=== PATIENT | male | born 1975 | race Caucasian/White ===

== ENCOUNTER → 2020-12-25 | Outpatient (CLI) | payer OTHER ==
[~2020-12-25] MED LIST: DEPAKOTE; DILANTIN100 MG PO; FLEXERIL PO; LOXAPINE10 MG PO; MEDROL DOSPAK21 TAB PO; NORCO 5-325 TA1 EACH PO; PROTONIX40 MG PO
[2020-12-25 09:10] LABS: ABSOLUTE NEUTROPHILS 4.1 thou/uL (1.4-8.2); BASOPHILS 0.4 % (0.0-2.0); EOSINOPHILS 1.4 % (0.0-3.0); HEMATOCRIT 45.1 % (42.0-52.0); HEMOGLOBIN 15.5 gm/dL (14.0-18.0); LYMPHOCYTES 33.2 % (24.0-44.0); MCHC 34.4 g/dL (28.0-37.0); MCV 98.7 fL (80.0-100.0); MONOCYTES 8.5 % (1.0-8.0); PLATELET COUNT 240 thou/uL (150-400); POLYS 56.5 % (36.0-66.0); RBC 4.57 mil/uL (4.50-6.00); RDW 13.6 % (10.5-14.5); WBC 7.2 thou/uL (4.0-11.0)
[2020-12-25 09:21] LABS: ALBUMIN 3.8 g/dL (3.4-5.0); ANION GAP 12 mmol/L (7-16); BUN 21 mg/dL (7-18); CALCIUM 8.5 mg/dL (8.5-10.1); CHLORIDE 106 mmol/L (98-107); CO2 24 mmol/L (21-32); DIRECT BILIRUBIN < 0.1 mg/dL (<0.1-0.2); GLUCOSE 122 mg/dL (74-106); POTASSIUM 4.1 mmol/L (3.5-5.1); SGOT 24 U/L (15-37); SGPT 47 U/L (30-65); SODIUM 142 mmol/L (136-145); TOTAL BILIRUBIN 0.2 mg/dL (0.2-1.0); TOTAL PROTEIN 6.9 g/dL (6.4-8.2)
== END ==
LOC: RAD 08:36
PROVIDERS: ATTEND Family Medicine
DX: R11.2 Nausea with vomiting, unspecified (principal)

== ENCOUNTER 2021-02-14 19:03 | Emergency (ER) | payer OTHER ==
[~2021-02-14] VITALS: Ht 185.4 cm; Wt 111.1 kg
[2021-02-14 19:39] LABS: CALCIUM 8.5 mg/dL (8.5-10.1); CREATININE 0.9 mg/dL (0.7-1.3); POTASSIUM 3.5 mmol/L (3.5-5.1)
[2021-02-14 19:40] LABS: ABSOLUTE NEUTROPHILS 7.9 thou/uL (1.4-8.2); BASOPHILS 0.2 % (0.0-2.0); EOSINOPHILS 0.8 % (0.0-3.0); HEMATOCRIT 45.5 % (42.0-52.0); HEMOGLOBIN 15.3 gm/dL (14.0-18.0); LYMPHOCYTES 18.9 % (24.0-44.0); MCH 33.9 pg (26.0-34.0); MCHC 33.6 g/dL (28.0-37.0); MCV 100.9 fL (80.0-100.0); MONOCYTES 6.8 % (1.0-8.0); PLATELET COUNT 208 thou/uL (150-400); POLYS 73.3 % (36.0-66.0); RBC 4.51 mil/uL (4.50-6.00); RDW 13.4 % (10.5-14.5); WBC 10.7 thou/uL (4.0-11.0)
[2021-02-14 19:44] LABS: ALBUMIN 3.6 g/dL (3.4-5.0); TOTAL BILIRUBIN 0.4 mg/dL (0.2-1.0); TOTAL PROTEIN 6.6 g/dL (6.4-8.2)
[2021-02-14 21:21] VITALS: BP 145/75
--- NOTE | 2021-02-15 07:13 | EKG ---
[place] [address] [employer] [facility] [place] [address] ELECTROCARDIOGRAM REPORT Name: SELAMSYBIL Ioana Room #: [id number] Admission: 02/14/21 Attend Phys: Discharge: 02/14/21 Date of : 79 Report #: [id number] [facility] ED Test Date: 2021-02-14 Test Time: 20:40:33 Pat Name: SYBIL DOSS Department: Room: Gender: M Mid Wife: [email or web address] : 1975 Requested By: Garo Shearer Order Number: [id number] MD: Prashant Clay Measurements Intervals [place] Rate: 59 P: 55 UT: 145 QRS: 71 QRSD: 98 T: 42 QT: 451 QTc: 447 Interpretive Statements Sinus rhythm Low voltage, precordial leads Baseline wander in lead(s) V2 Compared to ECG 04/30/2010 10:27:08 Low QRS voltage now present Sinus arrhythmia no longer present Electronically Signed On 02-15-2021 7:13:46 CDT by Prashant Clay [email or web address] <ELECTRONICALLY SIGNED> By: Prashant Clay MD, [facility] 02/15/21712 39 39 Prashant Clay MD, FACC /EPI
== END 2021-02-14 21:21 | disposition home or self-care (01) ==
LOC: ER 19:03
PROVIDERS: Emergency Medicine
DX: R11.2 Nausea with vomiting, unspecified (principal); Z20.822 Contact with and (suspected) exposure to COVID-19; R19.7 Diarrhea, unspecified; R53.83 Other fatigue; R53.1 Weakness; F17.210 Nicotine dependence, cigarettes, uncomplicated

== ENCOUNTER → 2021-02-25 | Outpatient (CLI) | payer OTHER | LOC: CAT 15:59 | PROVIDERS: ATTEND Family Medicine | DX: R04.2 Hemoptysis (principal); R63.4 Abnormal weight loss ==

== ENCOUNTER 2021-04-29 23:48 | Inpatient (IN) | payer OTHER ==
[~2021-04-29] VITALS: Ht 182.9 cm; Wt 103.0 kg
[2021-04-29 23:50] VITALS: BP 119/77
[2021-04-30 00:37] LABS: ABSOLUTE NEUTROPHILS 6.1 thou/uL (1.4-8.2); BASOPHILS 0.4 % (0.0-2.0); EOSINOPHILS 1.8 % (0.0-3.0); HEMOGLOBIN 14.5 gm/dL (14.0-18.0); LYMPHOCYTES 25.6 % (24.0-44.0); MCH 33.4 pg (26.0-34.0); MCHC 34.5 g/dL (28.0-37.0); MONOCYTES 7.5 % (1.0-8.0); PLATELET COUNT 207 thou/uL (150-400); POLYS 64.7 % (36.0-66.0); RBC 4.34 mil/uL (4.50-6.00); RDW 13.3 % (10.5-14.5); WBC 9.5 thou/uL (4.0-11.0)
[2021-04-30 00:44] LABS: CREATININE 0.9 mg/dL (0.7-1.3); POTASSIUM 3.6 mmol/L (3.5-5.1)
[2021-04-30 02:32] VITALS: BP 124/73
[2021-04-30 03:19] VITALS: BP 124/73
[2021-04-30 05:24] VITALS: BP 109/68
--- NOTE | 2021-04-30 06:19 | NUR ---
PT ADMITTED TO 439 VIA CART FROM ER AT 0415. PT ALERT AND ORIENTED X 4. PT C/O PAIN IN LOWER BACK. MORPHINE GIVEN ORDERED WITH PARTIAL PAIN RELIEF VERBALIZED. ADMISSION HISTORY AND ASSESSMENT COMPLETED. PT ORIENTED TO ROOM AND USE OF CALL LIGHT. SCD'S ON. PT SLEEPING AT INTERVALS.
[2021-04-30 08:32] VITALS: BP 117/74
--- NOTE | 2021-04-30 10:33 | NUR ---
A/O X 4. Room air. Bedbound. Not able to hardly move postions, only supine in bed with movement of arms due to back pain. Lidocaine patch on back. Left IV AC dressing dry, clean, and intact. SCDS appiled. Morphine 4 mg IV given for back pain @ 1010 and flexeril for spams in his back. can to nurses ststion for updated and plan. Paged Dr. Stein. Awaiting call back to see if patient will have an MRI of spine today.
[2021-04-30] MEDS ORDERED: MOBIC15 MG PO (17:07)
[2021-04-30] MEDS ORDERED: FLEXERIL PO (17:07)
[2021-04-30] MEDS ORDERED: HYDROCODON-ACE1 EAC7 PO (17:07)
[2021-04-30] MEDS ORDERED: LIDOPATCH1 EACH TRANSDERM (17:07)
[2021-04-30 19:01] VITALS: BP 117/74
== END 2021-04-30 19:31 | disposition home or self-care (01) | DRG 552 ==
LOC: ER 23:48 → EROBS 04-30 01:32 → 4S 04-30 01:32
PROVIDERS: Emergency Medicine; ADMIT Hospitalist; ATTEND Hospitalist
DX: M54.9 Dorsalgia, unspecified (principal); Z20.822 Contact with and (suspected) exposure to COVID-19; F31.9 Bipolar disorder, unspecified
CPT/HCPCS: 10195